=== PATIENT | female | born 1965 | race Caucasian/White ===

== ENCOUNTER 2022-11-24 09:42 | Observation (INO) ==
[~2022-11-24 09:42] MED LIST: Buffered Lidocaine 1% SYRIN 1 ml INTRADERM ONE; Dexamethasone IV 4 MG/ML VIAL 1 ml VIAL IV SLOW PU ONE; Famotidine IV 10 MG/ML 2 ml VIAL (20 mg) IV ONE; Lactated Ringers 1000 ml BAG 1,000 ML IV SCH; Lidocaine 2% PF 5 ML VIAL ONE; Midazolam 2 mg/2 ml VIAL 1 mg/ml 2 ml VIAL (2 mg) ONE; Propofol 10 MG/ML 20 ML BTL ONE; Rocuronium 50 mg VIAL 10 mg/ml 5 ml VIAL (50 mg) ONE; fentaNYL 100 mcg/2 ml 50 MCG/ML VIAL ONE
[2022-11-24] MEDS ORDERED: Clindamycin 900 MG/50 **NS BAG 900 MG/50 ML BAG ONE (10:10)
[2022-11-24] MEDS ORDERED: Dexamethasone IV 4 MG/ML VIAL 1 ml VIAL ONE (10:10)
[2022-11-24] MEDS ORDERED: Famotidine IV 10 MG/ML 2 ml VIAL (20 mg) ONE (10:10)
[2022-11-24 10:33] LABS: Rapid COVID-19 Molecular Undetected (Undetected)
[2022-11-24] MEDS ORDERED: ROPIVACAINE 5 MG/ML 30 ML BTL (0.5%) ONE (11:37)
[2022-11-24] MEDS ORDERED: Propofol 10 MG/ML 20 ML BTL ONE (12:26)
[2022-11-24] MEDS ORDERED: Ondansetron 4 mg VIAL 2 MG/ML 2 ml VIAL ONE (13:34)
[2022-11-24] MEDS ORDERED: Acetaminophen IV 1 GM/100ML 1,000 MG/100 ML BAG IV ONE (13:34)
[2022-11-24] MEDS ORDERED: Prochlorperazine 5 mg/ml 2 ml VIAL (10 mg) IV PRN (14:26)
[2022-11-24] MEDS ORDERED: Naloxone 0.4 mg VIAL 0.4 mg/ml 1 ml VIAL IV PRN (14:26)
[2022-11-24] MEDS ORDERED: fentaNYL 100 mcg/2 ml 50 MCG/ML VIAL IV PRN (14:26)
[2022-11-24] MEDS ORDERED: Magnesium Hydroxide LIQ 30 ML UDC PO PRN (15:27)
[2022-11-24] MEDS ORDERED: Lactulose 30 ml UDC PO PRN (15:27)
[2022-11-24] MEDS ORDERED: Ondansetron 4 mg VIAL 2 MG/ML 2 ml VIAL IV PRN (15:27)
[2022-11-24] MEDS ORDERED: Ondansetron ODT 4 mg TAB 4 MG TAB PO PRN (15:27)
[2022-11-24] MEDS ORDERED: Prochlorperazine 5 mg/ml 2 ml VIAL (10 mg) ONE (15:33)
[2022-11-24] MEDS ORDERED: Lactated Ringers 1000 ml BAG 1,000 ML IV SCH (16:00)
[2022-11-24] MEDS: ceFAZolin 1 GM ADVAN 1 GM in NS 0.9% 50 ML 50 ML IVPB SCH (18:00)
[2022-11-24] MEDS: Magnesium Hydroxide LIQ 30 ML UDC PO SCH (21:36)
[2022-11-25] MEDS: ceFAZolin 1 GM ADVAN 1 GM in NS 0.9% 50 ML 50 ML IVPB SCH ×2 (01:48→10:45)
[2022-11-25 06:12] LABS: Hematocrit 36.6 % (35-45); Hemoglobin 12.6 g/dL (11.5-14.3); Mean Platelet Volume 7.2 fL (7.5-11.2); Platelet Count 300 10^3/uL (150-450)
[2022-11-25 06:35] LABS: Calcium 9.1 mg/dL (8.6-10.3); Creatinine, Serum 0.58 mg/dL (0.51-0.95); Potassium 4.1 mmol/L (3.5-5.0); eGFR CKD-EPI 106.1 (>60)
[2022-11-25] MEDS: Magnesium Hydroxide LIQ 30 ML UDC PO SCH (07:55)
[2022-11-25] MEDS ORDERED: Vitamin THERAPEUTIC TAB PO SCH (09:00)
== END 2022-11-25 14:30 | disposition home or self-care (01) ==
LOC: OR 09:42 → SSU 09:42
PROVIDERS: ADMIT Orthopaedic Surgery Sports Medicine; ATTEND Orthopaedic Surgery Sports Medicine